=== PATIENT | male | born 1970 | race Caucasian/White ===

== ENCOUNTER 2020-07-11 17:34 | Emergency (ER) | payer BC ==
[2020-07-11 17:44] VITALS: TEMP 98; BMI 26.6
[2020-07-11] MEDS ORDERED: ACETAMINOPHEN 1000 MG/100 ML VIAL (NON FORMULARY) IVPB ONE (18:48)
[2020-07-11] MEDS ORDERED: ONDANSETRON 4 MG/2 ML VIAL IVPUSH ONE (18:48)
[2020-07-11] MEDS ORDERED: LACTATED RINGERS SOLUTION 1000 ML INFUS.BAG IV STA (18:49)
[2020-07-11] MEDS ORDERED: ACETAMINOPHEN INJECTION 100 ML IVPB ONE (18:53)
--- NOTE | 2020-07-11 19:01 | PDOC ---
Documentation entered by Nita Avery SCRIBE, acting as scribe for Oksana Gallardo MD. Oksana Gallardo MD: This documentation has been prepared by the Michelle guillermo Sydney, SCRIBE, under my direction and personally reviewed by me in its entirety. I confirm that the documentation accurately reflects all work, treatment, procedures, and medical decision making performed by me. Attending Attestation - Resident Resident Name: Stanley Pandey - ED Attending Attestation I have performed the following: I have examined & evaluated the patient, The case was reviewed & discussed with the resident, I agree w/resident's findings & plan, Exceptions are as noted - HPI HPI: 07/11/20 18:58 50 yo male p/w nausea and and RLQ pain since Sunday.Today he had loose stools. PSH cholecstectomy,ERCP - Physicial Exam PE: 07/11/20 18:59 wnwd 50 yo male with abdominal pain head ncat neck supple lungs cta b/l cvs [id number] abdomen ++RLQ tenderness, + guarding skin warm and dry extremities no edema neuro axox3,ambulatory - Medical Decision Making 07/11/20 19:15 ekg nsr ,inverted t wave in V1 07/11/20 19:21 repeat DX=[id number] 07/11/20 21:43 CAT scan of the abdomen and pelvis with contrast 3 mm subpleural right middle lobe nodule. Atelectasis and scarring in lung bases. No pleural effusions. The liver, pancreas, adrenal glands, and spleen are unremarkable Cholecystectomy No AAA Normal appendix No evidence of diverticulitis, no small bowel obstruction no free fluid and no free air Moderate right perinephric edema and mild right hydroureteronephrosis due to a 4.4 mm x 3 mm calculus in the distal right ureter at the UVJ Additional small nonobstructing left intrarenal calculi 07/11/20 22:01 IMP kidney stone @ right UVJ Spoke with urology in Dr Chris Anderson's office and they will see him tomorrow at 10 o'clock pt will be prescribed abx and d/c home Discharge - Discharge Information Problems reviewed: Yes Clinical Impression/Diagnosis: Kidney stone on right side, Hydronephrosis due to obstruction of ureter Condition: Improved Disposition: HOME - Additional Discharge Information Prescriptions: Tamsulosin HCl [Flomax] 0.4 mg PO DAILY 7 Days #7 capsule Cephalexin [Keflex] 500 mg PO BID 10 Days #20 capsule Ketorolac Tromethamine [Toradol] 10 mg PO Q6H PRN 3 Days #12 tablet PRN Reason: Pain Level 7 - 10 Ondansetron [Zofran *Odt*] 4 mg GT TID PRN 7 Days #21 cap PRN Reason: Nausea - Follow up/Referral Referrals: Sam Anderson MD [Staff Physician] - - Patient Discharge Instructions Patient Printed Discharge Instructions: DI for Kidney Stones Additional Instructions: You were seen in the ED for complaints of RLQ pain with associated nausea and diarrhea. In the ED you were evaluated with labs and CT scan of the Abd/Pelvis. Your labs showed an elevated white blood cell count, mildly elevated BUN & Creatinine level Your CT scan showed no appendicitis and a 4.4x3 mm kidney stone at the junction of the R ureter and bladder along with mild hydronephrosis. There does not appear to be an acute need for immediate hospitalization. You are advised to follow up with your Primary Care Physician within 1 week. You were given a referral to Urology with Dr. Sam Anderson - We spoke with Dr. Sam Anderson's practice and arranged an appointment for you tomorrow 07/12/2020 at 10 AM - Office Phone#: [phone] - Office Address: [address] [place] [address] You were given a prescription for: - Zofran otd 4 mg as needed for nausea - Toradol 10 mg as needed (every 6 hours) for severe pain - Flomax 0.4 mg daily - Keflex 500 mg twice daily - antibiotic prophylaxis Return to the ED immediately if you experience pain not resolved by the provided medications, gross blood in the urine, development of persistent fevers, or an inability to urinate. - Post Discharge Activity
[2020-07-11 19:23] LABS: HEMATOCRIT 43.6 % (35.4-49); HEMOGLOBIN 14.3 GM/dL (11.7-16.9); MCH 29.6 pg (25.7-33.7); MCHC 32.9 g/dl (32.0-35.9); MEAN CELL VOLUME 89.9 fl (80-96); MEAN PLT VOLUME 9.1 fl (7.5-11.1); PLATELET COUNT 217 K/MM3 (134-434); RBC 4.85 M/mm3 (4.00-5.60); RDW 14.1 % (11.9-15.9); WHITE BLOOD COUNT 14.7 K/mm3 (4.0-10.0)
--- NOTE | 2020-07-11 19:30 | PDOC ---
History of Present Illness - General Chief Complaint: Pain Stated Complaint: RT SIDE PAIN Time Seen by Provider: 07/11/20 18:05 - History of Present Illness Initial Comments: HPI 50 yo M with PMH of pre-diabetes presenting to the [facility] ED with RLQ pain. Pt reports sudden onset, non-migratory, non-radiating 8-9/10 RLQ pain that started on Sunday night. Pain lasted 1-2 hours, was associated nausea but not vomiting, and resolved on its own. The pain returned with the same severity today evening in the same location and has been constant since then. Pt again with associated nausea and no vomiting. He also reports associated diarrhea (2 episodes; watery, non-bloody). Pt urinary urgency, but no increased frequency/hematuria/dysuria. Pt denies recent fevers, chills, weakness, CP, SOB, headache, constipation, back pain or myalgias. Pt reports that there are no alleviating or aggravating factors for the pain and he has not tried anything for pain control. No recent sick contacts or travel. PMHX: as in HPI PSHX: cholecystectomy by Dr. eDx Escalante Meds: no daily medications Allergies: pt reports possible allergy to codeine (rash formed after administration) Tob: denies Etoh: denies Rec drugs: denies PCP: pt does not recall ROS GENERAL/CONSTITUTIONAL: No fever or chills. No weakness. HEAD, EYES, EARS, NOSE AND THROAT: No change in vision. No ear pain or discharge. No sore throat. CARDIOVASCULAR: No chest pain or shortness of breath RESPIRATORY: No cough, wheezing, or hemoptysis. GASTROINTESTINAL: No vomiting, constipation. +RLQ pain, nausea, diarrhea. GENITOURINARY: No dysuria, frequency, or change in urination. MUSCULOSKELETAL: No joint or muscle swelling or pain. No neck or back pain. SKIN: No rash NEUROLOGIC: No headache, vertigo, loss of consciousness, or change in strength/sensation. ENDOCRINE: No increased thirst. No abnormal weight change HEMATOLOGIC/LYMPHATIC: No anemia, easy bleeding, or history of blood clots. ALLERGIC/IMMUNOLOGIC: No hives or skin allergy. PE VS repeat BP 136/110; pulse 83 GENERAL: Awake, alert, and fully oriented, in no acute distress; moderate discomfort d/t RLQ pain HEAD: No signs of trauma, normocephalic, atraumatic EYES: PERRLA, EOMI, sclera anicteric, conjunctiva clear ENT: Auricles normal inspection, hearing grossly normal, nares patent, oropharynx clear without exudates. Moist mucosa NECK: Normal ROM, supple, no lymphadenopathy. LUNGS: No distress, speaks full sentences, clear to auscultation bilaterally HEART: Regular rate and rhythm, normal S1 and S2, no murmurs, rubs or gallops, peripheral pulses normal and equal bilaterally. ABDOMEN: Soft, normoactive bowel sounds, non distended; RLQ tenderness with guarding but no rebound. Back: No CVA tenderness : testicles are descended bilaterally. They are firm, non tender, and without masses or lesions. No penile lesions are noted and there is no discharge from the urethra. The scrotum is without induration, erythema, or edema. No hernias are palpated in the inguinal canals. EXTREMITIES : Normal inspection, Normal range of motion, no edema. No clubbing or cyanosis. NEUROLOGICAL: Normal speech, no focal sensorimotor deficits SKIN: Warm, Dry, normal turgor, no rashes or lesions noted 07/11/20 18:55 07/11/20 21:20 07/11/20 21:24 Past History - Medical History Allergies/Adverse Reactions: Allergies Allergy/AdvReac Type Severity Reaction Status Date / Time No Known Allergies Allergy Verified 07/11/20 17:40 Home Medications: Ambulatory Orders Cephalexin [Keflex] 500 mg PO BID 10 Days #20 capsule 07/11/20 Ketorolac Tromethamine [Toradol] 10 mg PO Q6H PRN 3 Days #12 tablet 07/11/20 Ondansetron [Zofran *Odt*] 4 mg GT TID PRN 7 Days #21 cap 07/11/20 Tamsulosin HCl [Flomax] 0.4 mg PO DAILY 7 Days #7 capsule 07/11/20 Anemia: No Asthma: No Cancer: No Cardiac Disorders: No CVA: No COPD: No CHF: No Dementia: No Diabetes: No GI Disorders: No Disorders: No HTN: No Hypercholesterolemia: No Liver Disease: No Seizures: No Thyroid Disease: No - Surgical History Abdominal Surgery: No Appendectomy: No Cardiac Surgery: No Cholecystectomy: Yes Lung Surgery: No Neurologic Surgery: No Orthopedic Surgery: No - Psycho-Social/Smoking History Smoking History: Never smoked - Substance Abuse Hx (Audit-C & DAST Scrn) How often the patient has a drink containing alcohol: Never Score: In Men: 4 or > Positive; In Women: 3 or > Positive: 0 Screen Result (Pos requires Nsg. Audit-10AR): Negative *Physical Exam - Vital Signs Last Vital Signs Temp Pulse Resp BP Pulse Ox 98 F 80 18 180/104 H 99 07/11/20 17:37 07/11/20 17:37 07/11/20 17:37 07/11/20 17:37 07/11/20 17:37 ED Treatment Course - LABORATORY CBC & Chemistry Diagram: 07/11/20 19:00 07/11/20 19:00 - RADIOLOGY Radiology Studies Ordered: Category Date Time Status ABDOMEN & PELVIS CT WITH CONTR [CT] Stat CT Scan 07/11/20 18:42 Ordered CXR [CHEST PA & LAT] [RAD] Stat Radiology 07/11/20 18:46 Ordered Medical Decision Making - Medical Decision Making MDM 50 yo M with PMH of pre-diabetes presenting to the [facility] ED with RLQ pain with associated nausea and diarrhea. DDX including but not limited to: suspect appendicitis vs kidney stone vs other GI pathology W/U: -CBC, CMP, UA, coags -CT Abd/Pelvis with contrast -CXR -EKG showing NSR, 75 bpm, MN interval 122, QRS 84, QT/QTc 402/448; No ST or T wave changes TX: - 1L LR, IV zofran, IV tylenol - will follow labs and imaging results 07/11/20 19:36 -Labs significant for WBC 14.7; BUN 25.4; Cr 1.4; UA with 2+ blood, 1+ ketones -Will give another 1L bolus of LR and continue with plan for CT Abd/Pelvis with contrast 07/11/20 20:08 -CT showing no appendicitis; moderate right peripnephric edema and mild right hydroureteronephrosis due to a 4.4 mm x 3 mm calculus in the distal right ureter at the UVJ. Additional small non-obstructing L intrarenal calculi. -Pt with clinical improvement; no longer having pain or nausea. -Case discussed with Urology - Dr. Sam Anderson's staff - recommended starting pt on flomax 0.4 mg and keflex 500 mg bid; they will see pt in office tomorrow -Will discharge pt with short course of toradol prn and zofran odt prn 07/11/20 21:51 Patient stable for discharge. Informed of all lab and imaging results. Given follow up instructions and strict return precautions. Patient expressed understanding and agree to plan. 07/11/20 23:20 Discharge - Discharge Information Problems reviewed: Yes Clinical Impression/Diagnosis: Kidney stone on right side, Hydronephrosis due to obstruction of ureter Condition: Improved Disposition: HOME - Admission No - Additional Discharge Information Prescriptions: Tamsulosin HCl [Flomax] 0.4 mg PO DAILY 7 Days #7 capsule Cephalexin [Keflex] 500 mg PO BID 10 Days #20 capsule Ketorolac Tromethamine [Toradol] 10 mg PO Q6H PRN 3 Days #12 tablet PRN Reason: Pain Level 7 - 10 Ondansetron [Zofran *Odt*] 4 mg GT TID PRN 7 Days #21 cap PRN Reason: Nausea - Follow up/Referral Referrals: Sam Anderson MD [Staff Physician] - - Patient Discharge Instructions Patient Printed Discharge Instructions: DI for Kidney Stones Additional Instructions: You were seen in the ED for complaints of RLQ pain with associated nausea and diarrhea. In the ED you were evaluated with labs and CT scan of the Abd/Pelvis. Your labs showed an elevated white blood cell count, mildly elevated BUN & Cr eatinine level Your CT scan showed no appendicitis and a 4.4x3 mm kidney stone at the junction of the R ureter and bladder along with mild hydronephrosis. There does not appear to be an acute need for immediate hospitalization. You are advised to follow up with your Primary Care Physician within 1 week. You were given a referral to Urology with Dr. Sam Anderson - We spoke with Dr. Sam Anderson's practice and arranged an appointment for you tomorrow 07/12/2020 at 10 AM - Office Phone#: [phone] - Office Address: [address] [place] [address] You were given a prescription for: - Zofran otd 4 mg as needed for nausea - Toradol 10 mg as needed (every 6 hours) for severe pain - Flomax 0.4 mg daily - Keflex 500 mg twice daily - antibiotic prophylaxis Return to the ED immediately if you experience pain not resolved by the provided medications, gross blood in the urine, development of persistent fevers, or an inability to urinate. - Post Discharge Activity
[2020-07-11 19:36] LABS: INR 1.11 (0.83-1.09); PROTHROMBIN TIME (PATIENT) 13.1 SEC (9.7-13.0)
[2020-07-11 19:39] LABS: ACTIVATED PTT 31.7 SECONDS (25.2-36.5)
[2020-07-11 19:44] LABS: ALBUMIN 4.3 g/dl (3.4-5.0); BILIRUBIN,TOTAL 1.2 mg/dL (0.2-1); BLOOD UREA NITROGEN 25.4 mg/dL (7-18); CREATININE 1.4 mg/dL (0.55-1.3); POTASSIUM 3.8 mmol/L (3.5-5.1); TOT PROT 7.4 g/dl (6.4-8.2)
[2020-07-11] MEDS ORDERED: LACTATED RINGERS SOLUTION 1000 ML INFUS.BAG IV ONE (19:51)
[2020-07-11 19:56] LABS: EPI CELLS 3 /uL (0-25.1); HYALINE CASTS 2 /uL (0-3.1); PH,URINE 5.5 (5.0-8.0); URINE APPEARANCE CLEAR; URINE BACTERIA 5 /uL (0-1359); URINE BILIRUBIN NEGATIVE (NEGATIVE); URINE COLOR YELLOW; URINE GLUCOSE (UA) NEGATIVE (NEGATIVE); URINE KETONE 1+ (NEGATIVE); URINE LEUK ESTERASE NEGATIVE (NEGATIVE); URINE NITRITE NEGATIVE (NEGATIVE); URINE PROTEIN NEGATIVE (NEGATIVE); URINE RBC 123 /uL (0-23.9); URINE UROBILINOGEN 0.2 mg/dL (0.2-1.0); URINE WBC 8 /uL (0-25.8)
[2020-07-11] MEDS ORDERED: CEFOXITIN SODIUM 2 GM in DEXTROSE 5%-WATER - 100 ML IVPB ONE (20:57)
[2020-07-11 22:30] VITALS: BP 124/78; PULSE 89
--- NOTE | 2020-07-12 11:16 | EKG ---
Test Reason : Blood Pressure : / mmHG Vent. Rate : 075 BPM Atrial Rate : 075 BPM P-R Int : 122 ms QRS Dur : 084 ms QT Int : 402 ms P-R-T Axes : 017 049 032 degrees QTc Int : 448 ms NORMAL SINUS RHYTHM NORMAL ECG WHEN COMPARED WITH ECG OF 17-DEC-2013 08:44, NO SIGNIFICANT CHANGE WAS FOUND Confirmed by TEOFILO WALKER MD ([id number]) on 07/12/2020 11:16:16 AM Referred By: Confirmed By:TEOFILO WALKER MD
== END 2020-07-11 22:45 | disposition home or self-care (01) ==
LOC: JER 17:34
PROC: 3E0333Z Introduction of Anti-inflammatory into Peripheral Vein, Percutaneous Approach (ICD-10-PCS; principal; 2020-07-11)
PROC: 3E033GC Introduction of Other Therapeutic Substance into Peripheral Vein, Percutaneous Approach (ICD-10-PCS; 2020-07-11)
DX: N20.0 Calculus of kidney (principal); N13.2 Hydronephrosis with renal and ureteral calculous obstruction
CPT/HCPCS: 36415; 74177-TC; 80053; 81003; 85027; 85610; 85730; 86850; 86900; 86901; 93005; 93010; 99285-25; J0131